=== PATIENT | female | born 1995 | race Caucasian/White ===

== ENCOUNTER 2016-09-20 00:23 | Emergency (ER) | payer MEDICAID ==
[~2016-09-20] VITALS: Ht 162.6 cm; Wt 72.5 kg
[~2016-09-20 00:23] MED LIST: PANT20TA3 PO; SUMA25TA3 PO; TRAM50TA2 PO; [UNRECOGNIZED DRUG - OTHER]
[2016-09-20 00:24] VITALS: BP 116/86
[2016-09-20] MEDS ORDERED: IBUPROFEN 200 MG TABLET ONE (00:46)
[2016-09-20] MEDS ORDERED: DEXAMETHASONE 4 MG TABLET ONE (00:47)
[2016-09-20] MEDS ORDERED: DEXAMETHASONE 4 MG TABLET PO ONE (01:00)
[2016-09-20] MEDS ORDERED: IBUPROFEN 200 MG TABLET PO ONE (01:00)
== END 2016-09-20 01:40 | disposition home or self-care (01) ==
LOC: ED 01:00
DX: J02.8 Acute pharyngitis due to other specified organisms (principal)
CPT/HCPCS: 87081; 87147; 87880; 99284

== ENCOUNTER 2016-10-23 18:35 | Emergency (ER) | payer MEDICAID ==
[~2016-10-23] VITALS: Ht 162.6 cm; Wt 71.6 kg
[2016-10-23] MEDS ORDERED: DIAZEPAM 5 MG TABLET PO ONE (19:00)
[2016-10-23] MEDS ORDERED: KETOROLAC 30 MG/1 ML IM ONE (19:00)
[2016-10-23] MEDS ORDERED: DIAZEPAM 5 MG TABLET ONE (19:19)
[2016-10-23] MEDS ORDERED: KETOROLAC 30 MG/1 ML ONE (19:19)
[2016-10-23 19:24] LABS: BLOOD UREA NITROGEN 16 mg/dL (7-18)
[2016-10-23 19:31] LABS: ASPARTATE AMINO TRANSFERASE 18 U/L (15-37)
[2016-10-23 20:30] VITALS: BP 115/74
== END 2016-10-23 20:33 | disposition home or self-care (01) ==
LOC: ED 20:17
DX: M54.6 Pain in thoracic spine (principal)
CPT/HCPCS: 36415; 71020; 80053; 84703; 85025; 93005; 96372; 99285; J1885

== ENCOUNTER 2016-12-04 18:11 | Emergency (ER) | payer MEDICAID ==
[~2016-12-04] VITALS: Ht 162.6 cm; Wt 73.0 kg
[2016-12-04] MEDS ORDERED: SODIUM CHLORIDE 0.9% 1,000 ML IV ONE (19:11)
[2016-12-04] MEDS ORDERED: SODIUM CHLORIDE 0.9% 1,000ML IVBOLUS ONE (19:30)
[2016-12-04 19:56] LABS: ASPARTATE AMINO TRANSFERASE 13 U/L (15-37); BLOOD UREA NITROGEN 13 mg/dL (7-18)
[2016-12-04] MEDS ORDERED: FENTANYL PF 100 MCG/2ML IM ONE (21:30)
[2016-12-04] MEDS ORDERED: FENTANYL PF 100 MCG/2ML ONE (21:47)
[2016-12-04 21:55] VITALS: BP 112/78
== END 2016-12-04 21:58 | disposition home or self-care (01) ==
LOC: ED 21:45
DX: R10.2 Pelvic and perineal pain (principal); G43.909 Migraine, unspecified, not intractable, without status migrainosus
CPT/HCPCS: 36415; 76830; 80053; 81001; 83690; 84703; 85025; 87086; 96372; 99285; J3010

== ENCOUNTER 2017-01-11 18:30 | Emergency (ER) | payer MEDICAID ==
[~2017-01-11] VITALS: Ht 162.6 cm; Wt 72.4 kg
[2017-01-11 18:31] VITALS: BP 110/73
[2017-01-11] MEDS ORDERED: LIDOCAINE 1%, 20ML ONE (18:58)
[2017-01-11] MEDS ORDERED: BUPIVACAINE/PF 0.5% ONE (18:58)
[2017-01-11] MEDS ORDERED: LIDOCAINE 2%, 20ML SQ ONE (19:00)
== END 2017-01-11 19:58 | disposition home or self-care (01) ==
LOC: ED 19:52
DX: L03.032 Cellulitis of left toe (principal); L60.0 Ingrowing nail
CPT/HCPCS: 11730

== ENCOUNTER 2017-03-31 19:49 | Emergency (ER) | payer MEDICAID ==
[~2017-03-31] VITALS: Ht 162.6 cm; Wt 71.0 kg
[~2017-03-31 19:49] MED LIST changes: +DEPOLUPRON; +DEPOLUPRON IM; +SERT100T PO
[2017-03-31] MEDS ORDERED: KETOROLAC 30 MG/1 ML ONE (21:13)
[2017-03-31] MEDS ORDERED: KETOROLAC 30 MG/1 ML IM ONE (21:30)
[2017-03-31 22:19] LABS: HEMATOCRIT 40.8 % (34.6-47.8); HEMOGLOBIN 13.6 g/dL (11.7-16.4)
[2017-03-31 22:31] LABS: BLOOD UREA NITROGEN 10 mg/dL (7-18)
[2017-03-31 22:40] LABS: IS PT STATUS REG ER OR PRE ER? YES
[2017-03-31 23:15] VITALS: BP 116/79
== END 2017-03-31 23:59 | disposition home or self-care (01) ==
LOC: ED 21:35
DX: R07.9 Chest pain, unspecified (principal); M25.511 Pain in right shoulder
CPT/HCPCS: 36415; 71020; 80048; 84484; 84703; 85025; 93005; 96372; 99285; J1885

== ENCOUNTER 2017-04-07 11:37 | Emergency (ER) | payer MEDICAID ==
[~2017-04-07] VITALS: Ht 162.6 cm; Wt 71.2 kg
[2017-04-07 11:39] VITALS: BP 127/87
[2017-04-07] MEDS ORDERED: IBUPROFEN 200 MG TABLET PO ONE (12:00)
[2017-04-07] MEDS ORDERED: HYDROcodone/APAP 5/325 TABLET PO ONE (12:00)
[2017-04-07] MEDS ORDERED: IBUPROFEN 200 MG TABLET ONE (12:11)
[2017-04-07] MEDS ORDERED: HYDROcodone/APAP 5/325 TABLET ONE (12:11)
[2017-04-07] MEDS ORDERED: birth control (12:22)
[2017-04-07] MEDS ORDERED: HYDR10TA4 PO (12:22)
[2017-04-07] MEDS ORDERED: CITA10TA8 PO (12:22)
== END 2017-04-07 13:13 | disposition home or self-care (01) ==
LOC: ED 13:08
DX: S62.336A Displaced fracture of neck of fifth metacarpal bone, right hand, initial encounter for closed fracture (principal); W22.8XXA Striking against or struck by other objects, initial encounter; Y93.89 Activity, other specified; Y92.009 Unspecified place in unspecified non-institutional (private) residence as the place of occurrence of the external cause; Y99.9 Unspecified external cause status
CPT/HCPCS: 29125; 99284

== ENCOUNTER 2017-04-13 11:22 | Emergency (ER) | payer MEDICAID ==
[~2017-04-13] VITALS: Ht 152.4 cm; Wt 72.4 kg
[~2017-04-13 11:22] MED LIST changes: +CITA10TA8 PO; +HYDR10TA4 PO; +birth control
[2017-04-13 11:34] VITALS: BP 108/73
== END 2017-04-13 12:33 ==
LOC: ED 11:59
DX: S62.101A Fracture of unspecified carpal bone, right wrist, initial encounter for closed fracture (principal); G43.909 Migraine, unspecified, not intractable, without status migrainosus; X58.XXXA Exposure to other specified factors, initial encounter; Y93.89 Activity, other specified; Y92.89 Other specified places as the place of occurrence of the external cause; Y99.8 Other external cause status
CPT/HCPCS: 99283

== ENCOUNTER 2017-05-31 10:38 | Emergency (ER) | payer MEDICAID ==
[~2017-05-31] VITALS: Ht 162.6 cm; Wt 74.5 kg
[2017-05-31 10:42] VITALS: BP 116/77
[2017-05-31] MEDS ORDERED: MORPHINE SULFATE 4 MG/ML, 1ML IVPush PRN (12:00)
[2017-05-31] MEDS ORDERED: SODIUM CHLORIDE 0.9% 1,000ML IVBOLUS ONE (12:00)
[2017-05-31] MEDS ORDERED: ONDANSETRON 2MG/ML, 2ML IVPush ONE (12:00)
[2017-05-31] MEDS ORDERED: SODIUM CHLORIDE FLUSH 10ML SYR IVF ONE (12:00)
[2017-05-31] MEDS ORDERED: FAMOTIDINE 20 MG/2 ML IVP ONE (12:00)
[2017-05-31 12:08] LABS: HEMATOCRIT 40.7 % (34.6-47.8); HEMOGLOBIN 13.8 g/dL (11.7-16.4); WHITE BLOOD COUNT 7.3 x10^3/uL (3.4-10)
[2017-05-31 12:21] LABS: ASPARTATE AMINO TRANSFERASE 16 U/L (15-37); BLOOD UREA NITROGEN 14 mg/dL (7-18)
[2017-05-31] MEDS ORDERED: MORPHINE SULFATE 4 MG/ML, 1ML ONE (12:46)
[2017-05-31] MEDS ORDERED: ONDANSETRON 2MG/ML, 2ML ONE (12:46)
[2017-05-31] MEDS ORDERED: FAMOTIDINE 20 MG/2 ML ONE (12:47)
== END 2017-05-31 13:55 | disposition home or self-care (01) ==
LOC: ED 12:28
DX: K59.00 Constipation, unspecified (principal); G43.909 Migraine, unspecified, not intractable, without status migrainosus; Z90.49 Acquired absence of other specified parts of digestive tract
CPT/HCPCS: 36415; 74020; 76700; 80053; 81001; 83690; 84703; 85025; 87086; 96361; 96374; 96375; 99285; J2405; J7030; S0028

== ENCOUNTER → 2017-06-21 | Outpatient (CLI) | payer MEDICAID | END | disposition home or self-care (01) | LOC: PETCFH 13:05 | PROVIDERS: ATTEND Surgery | DX: K82.8 Other specified diseases of gallbladder (principal) | CPT/HCPCS: 78227; A9537 ==

== ENCOUNTER 2017-07-10 12:03 | Emergency (ER) | payer MEDICAID ==
[~2017-07-10] VITALS: Ht 162.6 cm; Wt 74.0 kg
[2017-07-10 12:06] VITALS: BP 120/80
[2017-07-10] MEDS ORDERED: LIDOCAINE 1%, 20ML INFIL ONE (13:00)
[2017-07-10] MEDS ORDERED: LIDOCAINE 1%, 20ML ONE (13:49)
== END 2017-07-10 14:52 | disposition home or self-care (01) ==
LOC: ED 14:46
DX: S61.316A Laceration without foreign body of right little finger with damage to nail, initial encounter (principal); B34.9 Viral infection, unspecified; W23.0XXA Caught, crushed, jammed, or pinched between moving objects, initial encounter; Y93.89 Activity, other specified; Y92.098 Other place in other non-institutional residence as the place of occurrence of the external cause; Y99.8 Other external cause status
CPT/HCPCS: 11730; 99284

== ENCOUNTER 2017-09-09 16:13 | Emergency (ER) | payer MEDICAID ==
[~2017-09-09] VITALS: Ht 162.6 cm; Wt 78.4 kg
[2017-09-09 16:15] VITALS: BP 121/84
[2017-09-09] MEDS ORDERED: HYDROmorphone 1 MG/ML, 1ML ONE (18:25)
[2017-09-09] MEDS ORDERED: HYDROmorphone 1 MG/ML, 1ML IM ONE (18:30)
[2017-09-09] MEDS ORDERED: KETOROLAC 30 MG/1 ML IM ONE (18:30)
== END 2017-09-09 18:54 | disposition home or self-care (01) ==
LOC: ED 18:40
DX: S00.12XA Contusion of left eyelid and periocular area, initial encounter (principal); H11.32 Conjunctival hemorrhage, left eye; G43.909 Migraine, unspecified, not intractable, without status migrainosus; F17.210 Nicotine dependence, cigarettes, uncomplicated; X58.XXXA Exposure to other specified factors, initial encounter; Y93.89 Activity, other specified; Y99.8 Other external cause status; Y92.89 Other specified places as the place of occurrence of the external cause
CPT/HCPCS: 70486; 96372; 99284; J1170

== ENCOUNTER 2017-11-09 17:01 | Emergency (ER) | payer MEDICAID ==
[~2017-11-09] VITALS: Ht 162.6 cm; Wt 76.6 kg
[2017-11-09] MEDS ORDERED: HYDROcodone/APAP 5/325 TABLET PO STA (17:42)
[2017-11-09] MEDS ORDERED: ALBU18HF INH (17:46)
[2017-11-09] MEDS ORDERED: HYDROcodone/APAP 5/325 TABLET ONE (17:47)
[2017-11-09] MEDS ORDERED: KETOROLAC 30 MG/1 ML ONE (17:49)
[2017-11-09] MEDS ORDERED: KETOROLAC 60 MG/2 ML IM ONE (18:00)
[2017-11-09] MEDS ORDERED: HYDROcodone/APAP 5/325 TABLET PO ONE (18:00)
[2017-11-09 18:20] VITALS: BP 112/76
== END 2017-11-09 18:23 | disposition home or self-care (01) ==
LOC: ED 18:00
DX: S39.012A Strain of muscle, fascia and tendon of lower back, initial encounter (principal); M54.6 Pain in thoracic spine; X58.XXXA Exposure to other specified factors, initial encounter; Y93.89 Activity, other specified; Y92.89 Other specified places as the place of occurrence of the external cause; Y99.8 Other external cause status
CPT/HCPCS: 96372; 99283; J1885

== ENCOUNTER 2017-12-20 01:11 | Emergency (ER) | payer MEDICAID ==
[~2017-12-20] VITALS: Ht 162.6 cm; Wt 78.6 kg
[~2017-12-20 01:11] MED LIST changes: +ALBU18HF INH
[2017-12-20 02:04] LABS: BASOPHILS # (AUTO) 0.05 x10^3/uL (0-0.1); BASOPHILS % (AUTO) 0 % (0-1); EOSINOPHILS # (AUTO) 0.13 x10^3/uL (0-0.4); EOSINOPHILS % (AUTO) 1 % (1-7); LYMPHOCYTES # (AUTO) 2.66 x10^3/uL (1-3.4); LYMPHOCYTES % (AUTO) 23 % (22-44); MD NO; MEAN CORPUSCULAR HEMOGLOBIN 29.4 pg (27.0-34.8); MEAN CORPUSCULAR HGB CONC 34.2 g/dL (32.4-35.8); MEAN CORPUSCULAR VOLUME 85.9 fL (80-100); MEAN PLATELET VOLUME 7.8 fL (7.4-10.4); MONOCYTES # (AUTO) 0.73 x10^3/uL (0.2-0.8); MONOCYTES % (AUTO) 6 % (2-9); NEUTROPHILS # (AUTO) 8.01 x10^3/uL (1.8-6.8); NEUTROPHILS % (AUTO) 69 % (42-75); PLATELET COUNT 200 x10^3/uL (130-400); RED BLOOD COUNT 4.63 x10^6/uL (3.82-5.3); RED CELL DISTRIBUTION WIDTH 13.3 % (9.6-15.2)
[2017-12-20 02:05] LABS: ALBUMIN 3.8 g/dL (3.4-5.0); ANION GAP 11 mmol/L (5-15); CALCIUM 8.9 mg/dL (8.5-10.1); CHLORIDE 110 mmol/L (98-107); CREATININE 0.83 mg/dL (0.55-1.02)
[2017-12-20 02:06] LABS: INTERNATIONAL NORMALIZED RATIO 0.98 (0.93-1.1); PARTIAL THROMBOPLASTIN TIME 27 Seconds (25-31); PROTHROMBIN TIME 10.2 Seconds (9.6-11.5)
[2017-12-20 02:07] LABS: D-DIMER < 0.19 ug/mlFEU (0.00-0.52)
[2017-12-20 02:32] VITALS: BP 117/80
== END 2017-12-20 02:48 | disposition home or self-care (01) ==
LOC: ED 02:22
DX: R06.00 Dyspnea, unspecified (principal); F32.9 Major depressive disorder, single episode, unspecified; J45.909 Unspecified asthma, uncomplicated
CPT/HCPCS: 36415; 71046; 80048; 82040; 84703; 85025; 85379; 85610; 85730; 93005; 99285

== ENCOUNTER 2018-11-08 09:48 | Emergency (ER) | payer SELFPAY ==
[~2018-11-08] VITALS: Ht 165.1 cm; Wt 88.0 kg
[2018-11-08 10:01] VITALS: BP 128/81
== END 2018-11-08 11:18 | disposition home or self-care (01) ==
LOC: ED 11:04
DX: S93.601A Unspecified sprain of right foot, initial encounter (principal); X58.XXXA Exposure to other specified factors, initial encounter; Y93.89 Activity, other specified; Y92.89 Other specified places as the place of occurrence of the external cause; Y99.8 Other external cause status
CPT/HCPCS: 99283

== ENCOUNTER 2019-07-22 11:33 | Emergency (ER) | payer MEDICAID, OTHER ==
[~2019-07-22] VITALS: Ht 165.1 cm; Wt 91.0 kg
[~2019-07-22 11:33] MED LIST changes: +HYDR-2995 PO; -HYDR10TA4 PO
[2019-07-22 11:53] VITALS: BP 133/82
== END 2019-07-22 13:16 | disposition home or self-care (01) ==
LOC: ED 13:00
DX: S83.91XA Sprain of unspecified site of right knee, initial encounter (principal); G43.909 Migraine, unspecified, not intractable, without status migrainosus; F17.200 Nicotine dependence, unspecified, uncomplicated; Z90.49 Acquired absence of other specified parts of digestive tract; X50.1XXA Overexertion from prolonged static or awkward postures, initial encounter; Y93.39 Activity, other involving climbing, rappelling and jumping off; Y92.830 Public park as the place of occurrence of the external cause; Y99.8 Other external cause status
CPT/HCPCS: 29505; 99283

== ENCOUNTER 2019-08-29 21:02 | Observation (INO) | payer MEDICAID ==
[~2019-08-29] VITALS: Ht 165.1 cm; Wt 93.4 kg
--- NOTE | 2019-08-29 21:18 | NUR ---
PT AMBULATED BACK TO ROOM WITHOUT DIFFICULTY. Addendum: 08/29/19 at 2149 by HBEDELFINOON INSTRUCTED ON CLEAN CATCH URINE SAMPLE.
--- NOTE | 2019-08-29 21:42 | NUR ---
KATY FRENCH AT .
[2019-08-29 21:48] LABS: CULTURE INDICATED? YES; MICROSCOPIC INDICATED
--- NOTE | 2019-08-29 21:59 | NUR ---
REPORTED TO TIFFANI JOSE.
[2019-08-29] MEDS ORDERED: CEFTRIAXONE PMX 1GM/50ML 50 ML IV ONE (22:30)
[2019-08-29] MEDS ORDERED: SODIUM CHLORIDE FLUSH 10ML SYR IVF ONE (22:30)
[2019-08-29] MEDS ORDERED: SODIUM CHLORIDE 0.9% 1,000ML IVBOLUS ONE (22:30)
[2019-08-29 22:55] LABS: BASOPHILS # (AUTO) 0.02 x10^3/uL (0-0.1); BASOPHILS % (AUTO) 0 % (0-1); EOSINOPHILS # (AUTO) 0.12 x10^3/uL (0-0.4); EOSINOPHILS % (AUTO) 1 % (1-7); LYMPHOCYTES # (AUTO) 1.85 x10^3/uL (1-3.4); LYMPHOCYTES % (AUTO) 11 % (22-44); MD NO; MEAN CORPUSCULAR HEMOGLOBIN 28.8 pg (27.0-34.8); MEAN CORPUSCULAR VOLUME 84.5 fL (80-100); MEAN PLATELET VOLUME 7.2 fL (7.4-10.4); MONOCYTES # (AUTO) 1.18 x10^3/uL (0.2-0.8); MONOCYTES % (AUTO) 7 % (2-9); NEUTROPHILS # (AUTO) 13.98 x10^3/uL (1.8-6.8); NEUTROPHILS % (AUTO) 82 % (42-75); PLATELET COUNT 286 x10^3/uL (130-400); RED BLOOD COUNT 4.88 x10^6/uL (3.82-5.3); RED CELL DISTRIBUTION WIDTH 13.7 % (9.6-15.2)
[2019-08-29] MEDS ORDERED: CEFTRIAXONE PMX 1GM/50ML 50 ML ONE (22:58)
[2019-08-29] MEDS ORDERED: ACETAMINOPHEN 500 MG TABLET ONE (22:59)
[2019-08-29] MEDS ORDERED: ACETAMINOPHEN 500 MG TABLET PO ONE (23:00)
[2019-08-29 23:09] LABS: ALANINE AMINOTRANSFERASE 24 U/L (12-78); ALBUMIN 3.7 g/dL (3.4-5.0); ANION GAP 9 mmol/L (5-15); CALCIUM 8.9 mg/dL (8.5-10.1); CHLORIDE 106 mmol/L (98-107); CREATININE 0.91 mg/dL (0.55-1.02)
[2019-08-29 23:13] LABS: ALKALINE PHOSPHATASE 71 U/L (45-117); BILIRUBIN,TOTAL 0.5 mg/dL (0.2-1.0); TOTAL PROTEIN 8.5 g/dL (6.4-8.2)
[2019-08-30] MEDS ORDERED: ONDANSETRON 2MG/ML, 2ML ONE (00:07)
[2019-08-30] MEDS ORDERED: MORPHINE SULFATE 4 MG/ML, 1ML ONE (00:07)
--- NOTE | 2019-08-30 00:25 | NUR ---
REPORT RECEIVED FROM REBECA NIXON.
[2019-08-30] MEDS ORDERED: ONDANSETRON 2MG/ML, 2ML IVPush ONE (00:30)
[2019-08-30] MEDS ORDERED: MORPHINE SULFATE 4 MG/ML, 1ML IVPush PRN ×2 (00:30→01:30)
[2019-08-30] MEDS ORDERED: SODIUM CHLORIDE 0.9% 1,000ML IVBOLUS ONE (00:30)
[2019-08-30 00:35] LABS: RAPID INFLUENZA A Negative (Negative); RAPID INFLUENZA B Negative (Negative)
--- NOTE | 2019-08-30 00:42 | NUR ---
BREAK RN: PT RESTING IN ROOM. NO ACUTE DISTRESS NOTED. CALL LIGHT IN PLACE. WILL CONTNIUE TO MONITOR WHILE PRIMARY RN IS ON BREAK.
--- NOTE | 2019-08-30 01:15 | NUR ---
REPORT GIVEN TO REBECA PINEDA
[2019-08-30] MEDS ORDERED: SODIUM CHLORIDE 0.9% 1,000 ML IV ONE (01:16)
[2019-08-30] MEDS ORDERED: ONDANSETRON 2MG/ML, 2ML IVPush PRN ×2 (01:30→02:00)
--- NOTE | 2019-08-30 01:40 | NUR ---
FIRST ATTEMPT TO CALL REPORT.
[2019-08-30] MEDS: SODIUM CHLORIDE 0.9% 1,000 ML IV SCH ×2 (01:48→07:47)
[2019-08-30] MEDS ORDERED: ACETAMINOPHEN 325 MG TABLET PO PRN (02:00)
[2019-08-30] MEDS ORDERED: CYCLOBENZAPRINE 10 MG TABLET PO PRN (02:00)
[2019-08-30] MEDS ORDERED: BISACODYL 10 MG SUPP PR PRN (02:00)
[2019-08-30] MEDS ORDERED: POLYETHYLENE GLYCOL 17 GM PACKET PO PRN (02:00)
[2019-08-30 02:16] VITALS: BP 100/62
[2019-08-30] MEDS ORDERED: CYCL5TAB PO (02:34)
[2019-08-30] MEDS: ENOXAPARIN 40 MG/0.4 ML SQ SCH (03:32)
[2019-08-30] MEDS: CEFTRIAXONE PMX 1GM/50ML 50 ML IV SCH (03:32)
[2019-08-30 07:22] VITALS: BP 98/64
[2019-08-30] MEDS: SENNA/DOCUSATE TABLET PO SCH (07:47)
[2019-08-30 14:56] VITALS: BP 86/57
[2019-08-30 15:05] VITALS: BP 91/54
[2019-08-30] MEDS: IBUPROFEN 600 MG TABLET PO PRN ×2 (15:10→21:11)
[2019-08-30 20:00] VITALS: BP 107/73
[2019-08-31] MEDS: CEFTRIAXONE PMX 1GM/50ML 50 ML IV SCH (03:30)
[2019-08-31] MEDS: ENOXAPARIN 40 MG/0.4 ML SQ SCH (03:31)
[2019-08-31 03:41] VITALS: BP 104/75
[2019-08-31 05:21] LABS: BASOPHILS # (AUTO) 0.03 x10^3/uL (0-0.1); BASOPHILS % (AUTO) 0 % (0-1); EOSINOPHILS # (AUTO) 0.21 x10^3/uL (0-0.4); EOSINOPHILS % (AUTO) 2 % (1-7); LYMPHOCYTES # (AUTO) 2.18 x10^3/uL (1-3.4); LYMPHOCYTES % (AUTO) 21 % (22-44); MD NO; MEAN CORPUSCULAR HEMOGLOBIN 28.5 pg (27.0-34.8); MEAN CORPUSCULAR HGB CONC 33.2 g/dL (32.4-35.8); MEAN CORPUSCULAR VOLUME 85.9 fL (80-100); MEAN PLATELET VOLUME 7.3 fL (7.4-10.4); MONOCYTES # (AUTO) 1.06 x10^3/uL (0.2-0.8); MONOCYTES % (AUTO) 10 % (2-9); NEUTROPHILS # (AUTO) 7.05 x10^3/uL (1.8-6.8); NEUTROPHILS % (AUTO) 67 % (42-75); PLATELET COUNT 213 x10^3/uL (130-400); RED BLOOD COUNT 4.01 x10^6/uL (3.82-5.3); RED CELL DISTRIBUTION WIDTH 13.9 % (9.6-15.2)
[2019-08-31 05:28] LABS: ALANINE AMINOTRANSFERASE 18 U/L (12-78); ALBUMIN 2.7 g/dL (3.4-5.0); ANION GAP 7 mmol/L (5-15); CALCIUM 8.1 mg/dL (8.5-10.1); CHLORIDE 110 mmol/L (98-107); CREATININE 0.71 mg/dL (0.55-1.02)
[2019-08-31 05:30] LABS: ALKALINE PHOSPHATASE 57 U/L (45-117); BILIRUBIN,TOTAL 0.4 mg/dL (0.2-1.0); TOTAL PROTEIN 6.7 g/dL (6.4-8.2)
[2019-08-31 07:11] VITALS: BP 106/70
[2019-08-31] MEDS: SENNA/DOCUSATE TABLET PO SCH (10:27)
[2019-08-31] MEDS: IBUPROFEN 600 MG TABLET PO PRN (12:42)
[2019-08-31 13:13] VITALS: BP 105/66
[2019-08-31 19:32] VITALS: BP 96/61
[2019-09-01 00:36] VITALS: BP 92/61
[2019-09-01] MEDS: CEFTRIAXONE PMX 1GM/50ML 50 ML IV SCH (03:34)
[2019-09-01] MEDS: ENOXAPARIN 40 MG/0.4 ML SQ SCH (03:35)
[2019-09-01 03:39] VITALS: BP 99/63
[2019-09-01] MEDS ORDERED: CEFD300C37 PO (09:19)
[2019-09-01] MEDS ORDERED: IBUP-1222 PO (09:19)
[2019-09-01] MEDS ORDERED: TRAM50TA2 PO (09:19)
== END 2019-09-01 09:50 | disposition home or self-care (01) ==
LOC: ED 21:55 → INTOOBSV 08-30 01:48 → EDIP 08-30 01:48 → 3N 08-30 02:05 → DCLOUNGE 09-01 09:43
PROVIDERS: ADMIT Internal Medicine; ATTEND Hospitalist
DX: A41.9 Sepsis, unspecified organism (principal); M54.5 Low back pain; N10 Acute pyelonephritis; F41.9 Anxiety disorder, unspecified; B96.20 Unspecified Escherichia coli [E. coli] as the cause of diseases classified elsewhere; N80.9 Endometriosis, unspecified; E87.6 Hypokalemia; F41.1 Generalized anxiety disorder; G43.909 Migraine, unspecified, not intractable, without status migrainosus
CPT/HCPCS: 36415; 71045; 80053; 81001; 83605; 84145; 84703; 85025; 87040; 87077; 87086; 87186; 87400; 96361; 96365; 96366; 96372; 96375; 96376; 99285; G0378; J0696; J1650; J2270; J2405; J7030; 96360

== ENCOUNTER 2019-09-03 20:09 | Emergency (ER) | payer MEDICAID ==
[~2019-09-03] VITALS: Ht 165.1 cm; Wt 90.3 kg
[~2019-09-03 20:09] MED LIST changes: +CEFD300C37 PO; +CYCL5TAB PO; +IBUP-1222 PO
--- NOTE | 2019-09-03 20:30 | NUR ---
Patient presents to ER c/o bladder pain, left flank pain, and low back pain. Patient was admitted to the hospital last week from Sunday to Sunday for urosepsis. Patient states she has been taking her rx meds since she was discharged. Her pain started this morning. Patient denies dysuria. Denies abd pain. Patient was nauseous earlier but has since resolved. Patient is in NAD. Respirations even and unlabored.
[2019-09-03 20:52] LABS: MICROSCOPIC NOT IND
[2019-09-03 21:02] LABS: CULTURE INDICATED? NO
[2019-09-03 21:12] LABS: BASOPHILS # (AUTO) 0.05 x10^3/uL (0-0.1); BASOPHILS % (AUTO) 1 % (0-1); EOSINOPHILS # (AUTO) 0.19 x10^3/uL (0-0.4); EOSINOPHILS % (AUTO) 2 % (1-7); LYMPHOCYTES # (AUTO) 2.23 x10^3/uL (1-3.4); LYMPHOCYTES % (AUTO) 28 % (22-44); MD NO; MEAN CORPUSCULAR HEMOGLOBIN 28.7 pg (27.0-34.8); MEAN CORPUSCULAR HGB CONC 33.8 g/dL (32.4-35.8); MEAN PLATELET VOLUME 7.2 fL (7.4-10.4); MONOCYTES # (AUTO) 0.45 x10^3/uL (0.2-0.8); MONOCYTES % (AUTO) 6 % (2-9); NEUTROPHILS # (AUTO) 4.99 x10^3/uL (1.8-6.8); NEUTROPHILS % (AUTO) 63 % (42-75); PLATELET COUNT 343 x10^3/uL (130-400); RED BLOOD COUNT 4.85 x10^6/uL (3.82-5.3); RED CELL DISTRIBUTION WIDTH 13.4 % (9.6-15.2)
[2019-09-03 21:13] LABS: ANION GAP 10 mmol/L (5-15); CALCIUM 9.3 mg/dL (8.5-10.1); CHLORIDE 106 mmol/L (98-107); CREATININE 1.04 mg/dL (0.55-1.02)
[2019-09-03 21:41] VITALS: BP 122/78
--- NOTE | 2019-09-03 22:13 | NUR ---
Discharge instructions given. All questions and concerns addressed. Patient ambulatory with a steady gait. Belongings with patient.
== END 2019-09-03 22:14 | disposition home or self-care (01) ==
LOC: ED 22:00
DX: R10.31 Right lower quadrant pain (principal); R10.32 Left lower quadrant pain; R10.12 Left upper quadrant pain; F17.290 Nicotine dependence, other tobacco product, uncomplicated
CPT/HCPCS: 36415; 80048; 81003; 85025; 99283; 99406

== ENCOUNTER 2019-12-27 15:07 | Emergency (ER) | payer MEDICAID ==
[~2019-12-27] VITALS: Ht 162.6 cm; Wt 91.8 kg
--- NOTE | 2019-12-27 17:42 | NUR ---
DOOR TO DOOR SELLING DISTRIBUTOR: PT AMBULATORY WITH STEADY GAIT TO ROOM AT THIS TIME. KUNAL
[2019-12-27 17:51] VITALS: BP 117/65
== END 2019-12-27 18:41 | disposition home or self-care (01) ==
LOC: ED 17:00
DX: R06.00 Dyspnea, unspecified (principal); R07.89 Other chest pain; G43.909 Migraine, unspecified, not intractable, without status migrainosus; J45.909 Unspecified asthma, uncomplicated; Z90.89 Acquired absence of other organs
CPT/HCPCS: 71045; 93005; 99283

== ENCOUNTER 2020-05-16 22:43 | Emergency (ER) | payer MEDICAID ==
[~2020-05-16] VITALS: Ht 162.6 cm; Wt 92.4 kg
[~2020-05-16 22:43] MED LIST changes: -PANT20TA3 PO; +PANT20TA4 PO
[2020-05-16 22:47] VITALS: BP 140/86
[2020-05-16 23:39] LABS: BASOPHILS % (AUTO) 1 % (0-1); EOSINOPHILS % (AUTO) 2 % (1-7); LYMPHOCYTES % (AUTO) 24 % (22-44); MEAN CORPUSCULAR HEMOGLOBIN 29.2 pg (27.0-34.8); MEAN CORPUSCULAR HGB CONC 33.6 g/dL (32.4-35.8); MEAN PLATELET VOLUME 7.7 fL (7.4-10.4); MONOCYTES % (AUTO) 5 % (2-9); NEUTROPHILS % (AUTO) 69 % (42-75); PLATELET COUNT 251 x10^3/uL (130-400); RED CELL DISTRIBUTION WIDTH 13.8 % (9.6-15.2)
[2020-05-16 23:40] LABS: MD NO
[2020-05-16 23:47] LABS: ALANINE AMINOTRANSFERASE 28 U/L (12-78); ALBUMIN 3.9 g/dL (3.4-5.0); ANION GAP 5 mmol/L (5-15); CALCIUM 9.2 mg/dL (8.5-10.1); CHLORIDE 109 mmol/L (98-107)
[2020-05-16 23:52] LABS: ALKALINE PHOSPHATASE 76 U/L (45-117); BILIRUBIN,TOTAL 0.3 mg/dL (0.2-1.0); CREATININE 0.83 mg/dL (0.55-1.02)
[2020-05-17 00:15] LABS: MICROSCOPIC NOT IND
--- NOTE | 2020-05-17 00:54 | NUR ---
pt to room from lobby
--- NOTE | 2020-05-17 01:02 | NUR ---
PT HAS C/O BRIGHT RED BLOOD BOWEL MOVEMENT WITH ABD PAIN AND NAUSEA WITHIN THE LAST HR
[2020-05-17] MEDS ORDERED: ONDANSETRON ODT 4 MG ONE (01:20)
[2020-05-17] MEDS ORDERED: DICYCLOMINE 20 MG TABLET ONE (01:20)
--- NOTE | 2020-05-17 01:29 | NUR ---
Patient/Caregiver given discharge instructions and they have confirmed that they understand the instructions. Patient ambulatory with steady gait.
[2020-05-17] MEDS ORDERED: DICYCLOMINE 10 MG CAPSULE PO ONE (01:30)
[2020-05-17] MEDS ORDERED: ONDANSETRON ODT 4 MG PO ONE (01:30)
== END 2020-05-17 01:31 | disposition home or self-care (01) ==
LOC: ED 05-17 00:11
DX: K62.5 Hemorrhage of anus and rectum (principal); R19.7 Diarrhea, unspecified; R11.0 Nausea
CPT/HCPCS: 36415; 80053; 81003; 84703; 85025; 99283; Q0162

== ENCOUNTER 2020-12-28 09:20 | Emergency (ER) | payer MEDICAID ==
[~2020-12-28] VITALS: Ht 162.6 cm; Wt 90.6 kg
[2020-12-28 09:28] VITALS: BP 127/71
[2020-12-28] MEDS ORDERED: ACETAMINOPHEN 500 MG TABLET PO ONE (10:00)
[2020-12-28] MEDS ORDERED: ACETAMINOPHEN 500 MG TABLET ONE (10:22)
--- NOTE | 2020-12-28 10:53 | NUR ---
Patient given splint/discharge instructions, they have confirmed that they understand the instructions. Patient ambulatory with steady gait. NAD, all questions answered appropriately, denies additional needs at this time. No personal belongings left in room after discharge.
== END 2020-12-28 11:11 | disposition home or self-care (01) ==
LOC: ED 10:55
DX: O26.893 Other specified pregnancy related conditions, third trimester (principal); M25.532 Pain in left wrist; G89.29 Other chronic pain; G43.909 Migraine, unspecified, not intractable, without status migrainosus; F17.290 Nicotine dependence, other tobacco product, uncomplicated; Z90.89 Acquired absence of other organs; Z3A.17 17 weeks gestation of pregnancy
CPT/HCPCS: 29125; 99283

== ENCOUNTER 2021-01-22 14:28 | Emergency (ER) | payer MEDICAID ==
[~2021-01-22] VITALS: Ht 162.6 cm; Wt 91.0 kg
--- NOTE | 2021-01-22 14:58 | NUR ---
PT CAME IN [place] LEFT FLANK PAIN. PT REPORTS THAT USUALLY WHEN SHE HAS THIS PAIN SHE HAS A UTI. HX OF URO SEPSIS. PT IS ALSO 20 WEEKS PREG. DENIES BLEEDING OR CRAMPING.
[2021-01-22] MEDS ORDERED: SODIUM CHLORIDE 0.9% 1,000ML IV ONE (15:30)
[2021-01-22] MEDS ORDERED: SODIUM CHLORIDE FLUSH 10ML SYR IVF ONE (15:30)
[2021-01-22 15:38] LABS: MICROSCOPIC INDICATED
[2021-01-22 15:43] VITALS: BP 110/70
[2021-01-22 15:56] LABS: BASOPHILS % (AUTO) 0 % (0-1); EOSINOPHILS % (AUTO) 1 % (1-7); LYMPHOCYTES % (AUTO) 16 % (22-44); MEAN CORPUSCULAR HEMOGLOBIN 29.4 pg (27.0-34.8); MEAN CORPUSCULAR HGB CONC 34.2 g/dL (32.4-35.8); MEAN PLATELET VOLUME 7.5 fL (7.4-10.4); MONOCYTES % (AUTO) 6 % (2-9); NEUTROPHILS % (AUTO) 77 % (42-75); PLATELET COUNT 199 x10^3/uL (130-400); RED CELL DISTRIBUTION WIDTH 13.9 % (9.6-15.2)
[2021-01-22 16:10] LABS: ALBUMIN 2.8 g/dL (3.4-5.0); ANION GAP 8 mmol/L (5-15); CHLORIDE 109 mmol/L (98-107)
[2021-01-22 16:14] LABS: ALANINE AMINOTRANSFERASE 15 U/L (12-78); ALKALINE PHOSPHATASE 59 U/L (45-117); BILIRUBIN,TOTAL 0.3 mg/dL (0.2-1.0); CREATININE 0.46 mg/dL (0.55-1.02); TOTAL PROTEIN 6.7 g/dL (6.4-8.2)
[2021-01-22] MEDS ORDERED: CEFTRIAXONE 1,000 MG in DEXTROSE 5% 50 ML IVPB ONE (17:30)
== END 2021-01-22 18:29 | disposition home or self-care (01) ==
LOC: ED 16:01
DX: O23.12 Infections of bladder in pregnancy, second trimester (principal); R10.9 Unspecified abdominal pain; O99.332 Smoking (tobacco) complicating pregnancy, second trimester; F17.200 Nicotine dependence, unspecified, uncomplicated; Z3A.20 20 weeks gestation of pregnancy
CPT/HCPCS: 36415; 80053; 81001; 83605; 85025; 87040; 87086; 96361; 96365; 99284; J0696; J7030

== ENCOUNTER 2021-01-25 19:36 | Observation (INO) | payer MEDICAID ==
[~2021-01-25] VITALS: Ht 162.6 cm; Wt 90.0 kg
[2021-01-25 21:03] LABS: MICROSCOPIC INDICATED
[2021-01-25] MEDS ORDERED: LACTATED RINGERS 1,000 ML IV SCH (22:00)
[2021-01-25] MEDS ORDERED: CEFTRIAXONE 2 GM in DEXTROSE 5% 50 ML IVPB SCH (22:00)
[2021-01-25] MEDS ORDERED: LACTATED RINGERS 500 ML IVBOLUS ONE (22:00)
[2021-01-25] MEDS ORDERED: ONDANSETRON 2MG/ML, 2ML IVPush PRN (22:00)
[2021-01-25 22:11] LABS: BASOPHILS % (AUTO) 0 % (0-1); EOSINOPHILS % (AUTO) 1 % (1-7); LYMPHOCYTES % (AUTO) 21 % (22-44); MEAN CORPUSCULAR HEMOGLOBIN 29.7 pg (27.0-34.8); MEAN CORPUSCULAR HGB CONC 34.3 g/dL (32.4-35.8); MEAN PLATELET VOLUME 7.4 fL (7.4-10.4); MONOCYTES % (AUTO) 5 % (2-9); NEUTROPHILS % (AUTO) 73 % (42-75); PLATELET COUNT 181 x10^3/uL (130-400); RED BLOOD COUNT 3.96 x10^6/uL (3.82-5.3); RED CELL DISTRIBUTION WIDTH 14.1 % (9.6-15.2)
[2021-01-26] MEDS ORDERED: ACETAMINOPHEN 325 MG TABLET PO PRN (10:30)
[2021-01-26] MEDS ORDERED: ACET325T26 PO (14:04)
[2021-01-26] MEDS ORDERED: NITROFURANTOIN (MACROBID) 100 MG CAPSULE PO SCH (21:00)
== END 2021-01-26 15:30 | disposition home or self-care (01) ==
LOC: LDOP 19:36 → LDIP 21:25
PROVIDERS: ADMIT Obstetrics & Gynecology Female Pelvic Medicine and Reconstructive Surgery; ATTEND Obstetrics & Gynecology Female Pelvic Medicine and Reconstructive Surgery
DX: O23.02 Infections of kidney in pregnancy, second trimester (principal); Z3A.20 20 weeks gestation of pregnancy; Z79.899 Other long term (current) drug therapy
CPT/HCPCS: 36415; 76770; 81001; 85025; 87086; 96365; G0378; J0696; J7120